=== PATIENT | male | born 1985 | race African-American/Black ===

== ENCOUNTER 2020-10-16 22:34 | Emergency (ER) | payer OTHER ==
[~2020-10-16] VITALS: Ht 195.6 cm; Wt 93.0 kg
[2020-10-16 22:50] VITALS: BP 132/72
[2020-10-17 01:56] VITALS: BP 132/72
== END 2020-10-17 01:55 | disposition home or self-care (01) ==
LOC: MED 22:34
DX: S01.111A Laceration without foreign body of right eyelid and periocular area, initial encounter (principal); W50.0XXA Accidental hit or strike by another person, initial encounter; Y93.67 Activity, basketball; Y92.89 Other specified places as the place of occurrence of the external cause; Y99.8 Other external cause status
CPT/HCPCS: 99282